=== PATIENT | female | born 2000 | race Caucasian/White ===

== ENCOUNTER 2020-05-28 19:35 | Emergency (ER) | payer OTHER ==
--- NOTE | 2020-05-28 20:02 | EDM.PDOC ---
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 was lifting weights on her off time when she did a weight lift of 180 pounds the bar was behind her neck when she came back down she could not get out from under it it was too much weight for her and she fell forward with the bar rolling from her shoulders over her neck and head no loss of consciousness she is having some lower cervical spine pain and midthoracic back pain she was given 30 of Toradol by colleagues when she was brought into the hospital by EMS currently she has no pain no other medical problems no other injuries moving all 4 extremities no numbness or tingling Review of systems: As per history of present illness and below otherwise all systems reviewed and negative. Past medical history: As per history of present illness and as reviewed below otherwise noncontributory. Surgical history: As per history of present illness and as reviewed below otherwise noncontributory. Social history: No reported history of drug or alcohol abuse. Family history: As per history of present illness and as reviewed below otherwise noncontributory. Physical exam: HEENT: Atraumatic, normocephalic, pupils reactive, negative for conjunctival pallor or scleral icterus, mucous membranes moist, throat clear, neck supple, nontender, trachea midline. Neck: Nexus criteria negative there is no midline tenderness no pain with active range of motion Lungs: Clear to auscultation, breath sounds equal bilaterally, chest nontender. Heart: S1S2, regular, negative for clicks, rubs, or JVD. Abdomen: Soft, nondistended, nontender. Negative for masses or hepatosplenomegaly. Negative for costovertebral tenderness. Pelvis: Stable nontender. Genitourinary: Deferred. Rectal: Deferred. Extremities: Atraumatic, negative for cords or calf pain. Neurovascular unremarkable. Neuro: Awake, alert, oriented. Cranial nerves II through XII unremarkable. Cerebellum unremarkable. Motor and sensory unremarkable throughout. Exam nonfocal. Diagnostics: [] Therapeutics: [] Impression: Cervical strain [] Plan: Patient is currently pain-free after Toradol no evidence of cervical spine injury she will be discharged home she can return to work she is requesting to go back to work immediately. [] Definitive disposition and diagnosis as appropriate pending reevaluation and review of above. back/neckl Pain Score (Numeric/FACES): 1 - Related Data Allergies Allergy/AdvReac Type Severity Reaction Status Date / Time pertussis vaccine,adsorbed Allergy Lethargy Verified 05/28/20 19:36 [Pertussis Vaccine,Adsorbed] shellfish derived Allergy Hives Verified 05/28/20 19:36 Home Meds: Home Meds Cyclobenzaprine [Flexeril] 10 mg PO TID #30 tab 05/28/20 [Rx] Naproxen [Naprosyn] 500 mg PO Q12HR #20 tab 05/28/20 [Rx] Past Medical History - Past Health History Medical/Surgical History: Denies Medical/Surgical History HEENT History: Reports: None Cardiovascular History: Reports: None Respiratory History: Reports: None Gastrointestinal History: Reports: None Genitourinary History: Reports: Renal Calculus 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: None Musculoskeletal History: Reports: None Neurological History: Reports: Concussion Psychiatric History: Reports: None Endocrine/Metabolic History: Reports: None Hematologic History: Reports: None Immunologic History: Reports: None Oncologic (Cancer) History: Reports: None Dermatologic History: Reports: None - Infectious Disease History Infectious Disease History: Reports: None - Past Surgical History Head Surgeries/Procedures: Reports: None HEENT Surgical History: Reports: None Cardiovascular Surgical History: Reports: None Respiratory Surgical History: Reports: None GI Surgical History: Reports: None Female Surgical History: Reports: None Endocrine Surgical History: Reports: None Neurological Surgical History: Reports: None Musculoskeletal Surgical History: Reports: None Oncologic Surgical History: Reports: None Dermatological Surgical History: Reports: None Social & Family History - Family History Family Medical History: Noncontributory - Tobacco Use Smoking Status *Q: Never Smoker Second Hand Smoke Exposure: No - Caffeine Use Caffeine Use: Reports: None - Recreational Drug Use Recreational Drug Use: No ED ROS GENERAL - Review of Systems Review Of Systems: See Below ED EXAM, GENERAL - Physical Exam Exam: See Below Course - Vital Signs Text/Narrative:: Home Flexeril and naproxen she can follow-up with primary care. Last Recorded V/S: Last Vital Signs Temp 36.8 C 05/28/20 19:38 Pulse 87 05/28/20 19:38 Resp 17 05/28/20 19:38 BP 116/67 05/28/20 19:38 Pulse Ox 99 05/28/20 19:38 Departure - Departure Time of Disposition: 19:58 Disposition: Home, Self-Care 01 Condition: Good Clinical Impression: Cervical strain - Discharge Information *PRESCRIPTION DRUG MONITORING PROGRAM REVIEWED*: Not Applicable *COPY OF PRESCRIPTION DRUG MONITORING REPORT IN PATIENT YOHANA: Not Applicable Instructions: Cervical Sprain, [id number] Additional Instructions: The following information is given to patients seen in the emergency department who are being discharged to home. This information is to outline your options for follow-up care. We provide all patients seen in our emergency department with a follow-up referral. The need for follow-up, as well as the timing and circumstances, are variable depending upon the specifics of your emergency department visit. If you don't have a primary care physician on staff, we will provide you with a referral. We always advise you to contact your personal physician following an emergency department visit to inform them of the circumstance of the visit and for follow-up with them and/or the need for any referrals to a consulting specialist. The emergency department will also refer you to a specialist when appropriate. This referral assures that you have the opportunity for follow-up care with a specialist. All of these measure are taken in an effort to provide you with optimal care, which includes your follow-up. Under all circumstances we always encourage you to contact your private physician who remains a resource for coordinating your care. When calling for follow-up care, please make the office aware that this follow-up is from your re cent emergency room visit. If for any reason you are refused follow-up, please contact the [facility] Emergency Department at and asked to speak to the emergency department charge nurse. [facility] [address] [place] [id number] [address] Sepsis Event Note (ED) - Evaluation Sepsis Screening Result: No Definite Risk - Focused Exam Vital Signs: Vital Signs Temp Pulse Resp BP Pulse Ox 05/28/20 19:38 36.8 C 87 17 116/67 99
[2020-05-28 20:51] VITALS: BP 118/83; PULSE 89
== END 2020-05-28 20:10 | disposition home or self-care (01) ==
LOC: MW.ED 19:35
DX: S16.1XXA Strain of muscle, fascia and tendon at neck level, initial encounter (principal); Z88.7 Allergy status to serum and vaccine; Z91.013 Allergy to seafood; X50.0XXA Overexertion from strenuous movement or load, initial encounter
CPT/HCPCS: 99284